=== PATIENT | male | born 1970 | race Caucasian/White ===

== ENCOUNTER 2017-03-18 07:25 | Day surgery (SDC) | payer BC ==
[2017-03-12 16:54] LABS: BASOPHILS 0.4 %; BASOPHILS ABSOLUTE 0.03 10/3/uL (0.0-0.16); EOSINOPHILS 1.2 %; EOSINOPHILS ABSOLUTE 0.09 10/3/uL (0.0-0.53); HEMATOCRIT 39.8 % (40.0-51.0); HEMOGLOBIN 14.2 g/dL (13.6-17.8); IMMATURE GRANULOCYTES 0.3 %; IMMATURE GRANULOCYTES ABSOLUTE 0.02 10/3/uL (0.0-0.11); LYMPHOCYTES 26.9 %; LYMPHOCYTES ABSOLUTE 1.98 10/3/uL (0.67-4.30); MEAN CORPUS HGB CONC 35.7 g/dL (32.0-36.0); MEAN CORPUSCULAR HEMOGLOB 30.9 pg (26.0-34.0); MEAN CORPUSCULAR VOLUME 86.7 fL (80-100); MEAN PLATELET VOLUME 9.3 fL (9.2-13.0); MONOCYTES 15.5 %; MONOCYTES ABSOLUTE 1.14 10/3/uL (0.21-1.20); NEUTROPHILS 55.7 %; PLATELET COUNT 248 10/3/uL (150-400); RBC DISTRIBUTION WIDTH 13.2 % (12.0-16.0); RED CELL COUNT 4.59 10/6/uL (4.7-6.1); WHITE BLOOD CELLS 7.4 10/3/uL (4.5-10.5)
[2017-03-12 16:55] LABS: MANUAL DIFF NO %
[2017-03-12 17:22] LABS: ALBUMIN 3.6 G/DL (3.5-5.0); ALKALINE PHOSPHATASE 73 U/L (45-117); BUN (BLOOD UREA NITROGEN) 14 MG/DL (6-23); CALCIUM, SERUM 8.8 MG/DL (8.5-10.4); CHLORIDE, SERUM 108 MMOL/L (96-112); CO2 (CARBON DIOXIDE) 24 MMOL/L (24-34); CREATININE 0.91 MG/DL (0.70-1.30); GFR AFRICAN AMERICAN 115 ML/MIN (>=60); GFR NON AFRICAN AMERICAN 99 ML/MIN (>=60); GLOBULIN 3.6 G/DL (2.5-4.1); GLUCOSE, SERUM 98 MG/DL (60-99); POTASSIUM, SERUM 4.1 MMOL/L (3.5-5.3); SGOT(AST) 24 U/L (5-40); SGPT(ALT) 37 U/L (5-65); SODIUM, SERUM 140 MMOL/L (135-148); TOTAL BILIRUBIN 0.4 MG/DL (0-1.2); TOTAL PROTEIN 7.2 G/DL (6.0-8.5)
--- NOTE | ~2017-03-18 | PREOPHP ---
PreOp History and Physical [place] [id number] [facility] [place]. [address] NAME: REGGIE PUTNAM JR : 66 STATUS : [facility]#: [id number] AGE: 46 ADM/REG DATE : 03/18/17 MR#: [id number] REPORT SERV DATE: 04/30/17 DICTATED BY: MCKENNA AVILA III DATE: 04/30/17 REPORT STATUS : Draft TRANSCRIBED BY: KATY DATE: 04/30/17 ADDENDUM: (This is the second history and physical on this patient which was dictated prior to surgery). HISTORY OF PRESENT ILLNESS: This 46-year-old male comes to the operating room for resection of an enlarging symptomatic soft tissue mass over the right upper back and another soft tissue mass over the left posterior scalp. These have been increasing in size, and he comes now for resection of both of these for diagnostic and therapeutic reasons. PAST MEDICAL HISTORY, REVIEW OF SYSTEMS, AND PHYSICAL EXAM: Please see previously dictated history and physical. 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 PLAN: The patient comes to the operating room now for resection of both of these masses. This procedure, the risks, benefits, and alternatives, including but not limited to the risk for bleeding, infection, pain, swelling, scarring, deformity to either both areas, seroma formation, hematoma formation, nerve injury, chronic paresthesia, pain in the back or involved areas, spinal accessory nerve injury with muscle weakness or paralysis in muscles of upper back or shoulder, and unforeseen complications including deep venous thrombosis, pulmonary embolus, myocardial infarction, stroke, pneumonia, and , have been explained to the patient prior to surgery. The patient's questions have been answered, and the patient understands and agrees to the surgery as planned. MERRILL/KATY Mckenna Avila III, M.D. / [id number] CC: Mckenna Avila III, M.D.
--- NOTE | ~2017-03-18 | OP ---
Record Of Operation [facility] [address] [place]. [address] NAME: REGGIE PUTNAM JR : 66 STATUS : [facility] PAT#: [id number] AGE: 46 ADM/REG DATE : 03/18/17 MR#: [id number] REPORT SERV DATE: 03/18/17 DICTATED BY: MCKENNA AVILA III DATE: 03/18/17 REPORT STATUS : Draft TRANSCRIBED BY: MODL DATE: 03/18/17 DATE OF PROCEDURE: 03/18/2017 PREOPERATIVE DIAGNOSIS: Enlarging symptomatic soft tissue neoplasm of right upper back and soft tissue neoplasm of left posterior scalp. POSTOPERATIVE DIAGNOSIS: Enlarging symptomatic soft tissue neoplasm of right upper back and soft tissue neoplasm of left posterior scalp. PROCEDURE: Wide radical resection of soft tissue mass from right upper back and excision of soft tissue mass from left posterior scalp. SURGEON: Mckenna Avila M.D. ANESTHESIA: General with intubation. COMPLICATIONS: None. ESTIMATED BLOOD LOSS: Less than 5 mL. SPECIMENS: Mass from back and scalp. DRAINS: Richard-Wallis in subcutaneous tissue where the back mass is located. LAP AND SPONGE COUNT: Correct x3. BRIEF HISTORY: This 46-year-old male presented with an enlarging symptomatic soft tissue mass over the right upper back and another soft tissue mass over the left posterior scalp. It was felt that resection of each of these was indicated for both diagnostic and therapeutic reasons. This procedure, the risks, benefits, and alternatives, including not limited to the risk for bleeding, infection, pain, swelling, scarring, deformity of either or both areas, seroma formation, hematoma formation, wound failure, wound dehiscence, nerve injury, chronic paresthesia, pain, numbness, neuralgia or neuroma of either or both areas, spinal accessory nerve injuries, muscle weakness, or paralysis in muscles of upper back or shoulder, and unforeseen complications including deep venous thrombosis, pulmonary embolus, myocardial infarction, stroke, pneumonia and , were fully and completely explained to the patient and his family prior to surgery. The expected length of recovery was explained. The patient had questions, which were answered. He fully understood the risks and agreed to the surgery as planned. DESCRIPTION OF PROCEDURE: After being properly identified and after discussing the risks and benefits of surgery with the patient and his family again in the preoperative area and after identifying the areas of concern with him in the preoperative area, the patient was taken to the operating room and placed in supine position on a stretcher adjacent to the operating room table. General anesthesia was administered, and he was intubated without difficulty. He was then rolled into the prone position on the operating room table. This was done very Record Of Operation [place] [id number] [place]. [address] NAME: REGGIE PUTNAM JR : 66 STATUS : [facility] [place] PAT#: [id number] AGE: 46 ADM/REG DATE : 03/18/17 MR#: [id number] REPORT SERV DATE: 03/18/17 DICTATED BY: MCKENNA AVILA III DATE: 03/18/17 REPORT STATUS : Draft TRANSCRIBED BY: KATY DATE: 03/18/17 carefully and meticulously. Appropriate pads were placed beneath his torso and shoulders. The back and scalp areas were prepped and draped sterilely in the usual fashion. After an appropriate "time-out" per [place] standards, a vertical incision was made directly over the mass over the back. The incision was continued through the subcutaneous tissue. A well- defined, well-encapsulated mass was identified. This was a large mass. It was carefully resected. The mass extended down to the muscle. The entire mass was resected and it was about 10 cm in size. At no point were any neurovascular structures encountered or injured. Hemostasis was assured. A Richard-Wallis drain was brought through a separate stab wound and placed in the subcutaneous tissue. The subcutaneous tissue was closed with interrupted 2-0 Vicryl sutures. The skin was closed with interrupted 3-0 Prolene sutures. The incision was injected with 0.5% Marcaine. We then turned our attention to the mass over the left posterior scalp. A transverse incision was made directly over this mass. A poorly defined mass of adipose tissue was identified. This was resected. This extended down to the skull. This mass was about 3 cm in size. Hemostasis was assured. Subcutaneous tissue was closed with a running 3-0 Vicryl suture. The skin was closed with running subcuticular 4-0 Monocryl and stitch. The incisions were injected with 0.5% Marcaine. Dressings were applied. Anesthesia was reversed. The patient was taken to the recovery room in stable condition. He tolerated the procedure well. His family was informed of the results of surgery. The patient's family will be instructed on the care of the ISIS drain. He will be discharged when stable and comfortable. His family was advised that he should not drive for two to three days after surgery or while using narcotics and that he should resume his usual medications and that he should return to the office in about four days for followup or sooner if any fever, chills, wound drainage, or other problems prior to that time. He was given a prescription for Percocet 7.5 one t.i.d., #12, as needed for pain, which he was advised not to use while driving. RHJ/KATY Mckenna Avila III, M.D. / [id number] CC: Emmanuel Grimes III
[~2017-03-18 07:25] MED LIST: ASA5GR PO; CELEXA10 PO; LISINOPRIL40 MG PO; LOP25 PO; NORV10 PO; PRAVAC PO; PRIN2.5 PO; ZESTORETIC PO
== END 2017-03-18 18:27 | disposition home or self-care (01) ==
LOC: SDC 07:25
PROVIDERS: Surgery
PROC: 0JB70ZZ Excision of Back Subcutaneous Tissue and Fascia, Open Approach (ICD-10-PCS; 2017-03-18)
PROC: 0KB00ZZ Excision of Head Muscle, Open Approach (ICD-10-PCS; principal; 2017-03-18 09:00)
DX: D17.0 Benign lipomatous neoplasm of skin and subcutaneous tissue of head, face and neck (principal); D17.1 Benign lipomatous neoplasm of skin and subcutaneous tissue of trunk; E66.01 Morbid (severe) obesity due to excess calories; G47.33 Obstructive sleep apnea (adult) (pediatric); K21.9 Gastro-esophageal reflux disease without esophagitis; F41.9 Anxiety disorder, unspecified; G25.81 Restless legs syndrome; I10 Essential (primary) hypertension; Z68.42 Body mass index [BMI] 45.0-49.9, adult; Z79.899 Other long term (current) drug therapy; Z90.89 Acquired absence of other organs; Z99.89 Dependence on other enabling machines and devices; Z98.890 Other specified postprocedural states
CPT/HCPCS: 71020; 80053; 85025; 88304; 93005; A9270-GY; J0690; J2250; J2405; J2710; J3010